=== PATIENT | male | born 1985 | race Caucasian/White ===

== ENCOUNTER 2018-09-26 10:30 | Emergency (ER) | payer SELFPAY ==
[~2018-09-26] VITALS: Ht 188 cm; Wt 90.9 kg
[2018-09-26] MEDS ORDERED: KETOROLAC 30 MG/ML VIAL (J1885) IV ONE (10:45)
[2018-09-26] MEDS ORDERED: NS 1,000 ML IV ONE (10:45)
[2018-09-26] MEDS ORDERED: ONDANSETRON 4MG/2ML VIAL (J2405) IV ONE (10:45)
[2018-09-26 11:01] LABS: BASO % 0.5 % (0.0-1.0); EOS # 0.1 10^3/uL (0.0-0.50); EOS % 1.5 % (0.0-3.0); HEMATOCRIT 40.1 % (42.0-52.0); HEMOGLOBIN 13.9 g/dl (13.5-17.5); LYMPH # 2.3 10^3/uL (1.5-4.5); LYMPH % 25.8 % (24.0-44.0); MEAN CORPUSCULAR HEMOGLOBIN 31.9 pg (27.0-33.0); MEAN CORPUSCULAR HGB CONC 34.7 g/dl (32.0-36.5); MONO # 0.8 10^3/uL (0.0-0.8); MONO % 8.6 % (0.0-5.0); NEUTROPHILS # 5.6 10^3/uL (1.8-7.7); NEUTROPHILS % 63.3 % (36.0-66.0); PLATELET COUNT, AUTOMATED 240 10^3/uL (150-450); RED BLOOD COUNT 4.36 10^6/uL (4.30-6.10); WHITE BLOOD COUNT 8.8 10^3/uL (4.0-10.0)
--- NOTE | 2018-09-26 11:27 | REP ---
Clinical: Right flank pain. Technique: Axial noncontrast images from the lung bases to the pubic symphysis with coronal and sagittal re-formations. Findings: Right kidney appears malrotated and demonstrates mild hydroureteronephrosis secondary to a 2 mm obstructing calculus at the ureterovesicle junction (image [id number]). Remainder of the urinary tract system is unremarkable and no further nephroureterolithiasis is noted. Liver, spleen, pancreas, gallbladder, and bilateral adrenal glands are normal. Enteric system is without obstruction or acute inflammatory process. Pelvis demonstrates collapsed bladder and age appropriate prostate/seminal vesicles. No ascites. No free air. No adenopathy. Abdominal aorta without aneurysm. Musculoskeletal structures without focal osseous abnormality. Lung bases clear. 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 Electronically Signed by Emmanuel Blackmon MD 09/26/2018 11:18 A
[2018-09-26] MEDS ORDERED: TAMSULOSIN 0.4 MG CAP PO ONE (11:30)
[2018-09-26 11:35] LABS: ALBUMIN 3.8 GM/DL (3.2-5.2); ALT/SGPT 32 U/L (12-78); BILIRUBIN,DIRECT < 0.1 MG/DL (0.0-0.2); BILIRUBIN,TOTAL 0.4 MG/DL (0.2-1.0); LIPASE 72 U/L (73-393); TOTAL PROTEIN 7.3 GM/DL (6.4-8.2)
[2018-09-26] MEDS ORDERED: PERCOCET 5MG/325MG TAB PO ONE (11:45)
[2018-09-26] MEDS ORDERED: FLOM0.4C39 PO (11:47)
[2018-09-26] MEDS ORDERED: KETO10TAB PO (11:47)
[2018-09-26] MEDS ORDERED: PERC5TAB12 PO (11:48)
[2018-09-26 12:05] LABS: BLOOD UREA NITROGEN 11 MG/DL (7-18); CALCIUM LEVEL 8.6 MG/DL (8.5-10.1); CARBON DIOXIDE LEVEL 23 MEQ/L (21-32); CHLORIDE LEVEL 106 MEQ/L (98-107); CREATININE FOR GFR 0.94 MG/DL (0.70-1.30); GLOMERULAR FILTRATION RATE > 60.0 (>60); GLUCOSE, FASTING 136 MG/DL (70-100); POTASSIUM SERUM 3.2 MEQ/L (3.5-5.1); SODIUM LEVEL 140 MEQ/L (136-145)
[2018-09-26] MEDS ORDERED: POTASSIUM CHLORIDE 10 MEQ SR TABLET PO ONE (12:15)
[2018-09-26 12:26] VITALS: BP 124/61
== END 2018-09-26 12:27 | disposition home or self-care (01) ==
LOC: M ED 10:30
DX: N20.1 Calculus of ureter (principal)
CPT/HCPCS: 74176; 80048; 80076; 81001; 83690; 85025; 96361; 96374; 96375; 99284; J1885; J2405

== ENCOUNTER 2019-11-12 13:47 | Emergency (ER) | payer OTHER ==
[~2019-11-12 13:47] MED LIST: FLOM0.4C39 PO; KETO10TAB PO; PERC5TAB12 PO
[2019-11-12] MEDS ORDERED: BOOSTRIX/ADACEL VACCINE (DIPHTH/PERTUSS/ACELL/TETANUS) 0.5ML SYR ONE (14:30)
[2019-11-12] MEDS ORDERED: BOOSTRIX/ADACEL VACCINE (DIPHTH/PERTUSS/ACELL/TETANUS) 0.5ML SYR As Ordered ONE (14:33)
[2019-12-26 12:26] LABS: APPEARANCE, URINE MANUAL CLEAR (CLEAR); BILIRUBIN, URINE MANUAL NEGATIVE (NEGATIVE); BLOOD URINE MANUAL NEGATIVE (NEGATIVE); COLOR, URINE MANUAL YELLOW (YELLOW); GLUCOSE, URINE (UA) MANUAL NEGATIVE (NEGATIVE); KETONE, URINE MANUAL NEGATIVE (NEGATIVE); LEUKOCYTE ESTERASE, URINE MAN NEGATIVE (NEGATIVE); NITRITE, URINE MANUAL NEGATIVE (NEGATIVE); PH,URINE MAN 5.5 UNITS (5.0 - 7.0); PROTEIN, URINE MANUAL NEGATIVE (NEGATIVE); UROBILINOGEN, URINE MANUAL NORMAL (NORMAL)
== END 2019-11-12 16:28 | disposition home or self-care (01) ==
LOC: M ED 13:47
DX: T14.8XXA Other injury of unspecified body region, initial encounter (principal); W11.XXXA Fall on and from ladder, initial encounter; Y92.89 Other specified places as the place of occurrence of the external cause; Y93.89 Activity, other specified; Y99.0 Civilian activity done for income or pay; Z91.013 Allergy to seafood

== ENCOUNTER 2021-07-18 17:08 | Emergency (ER) | payer OTHER ==
[~2021-07-18] VITALS: Ht 188 cm; Wt 95.9 kg
[2021-07-18 17:09] VITALS: BP 142/76
== END 2021-07-18 18:33 | disposition left against medical advice (07) ==
LOC: M ED 17:08
DX: Z53.21 Procedure and treatment not carried out due to patient leaving prior to being seen by health care provider (principal)

== ENCOUNTER 2021-07-20 23:33 | Emergency (ER) | payer OTHER ==
[~2021-07-20] VITALS: Ht 188 cm; Wt 100.5 kg
[2021-07-21 00:25] LABS: BASO % 0.5 % (0.0-1.0); EOS # 0.4 10^3/uL (0.0-0.5); EOS % 4.7 % (0.0-3.0); HEMATOCRIT 39.8 % (42.0-52.0); HEMOGLOBIN 13.8 g/dl (13.5-17.5); LYMPH # 2.3 10^3/uL (1.5-5.0); MEAN CORPUSCULAR HEMOGLOBIN 31.7 pg (27.0-33.0); MEAN CORPUSCULAR HGB CONC 34.7 g/dl (32.0-36.5); MEAN CORPUSCULAR VOLUME 91.3 fl (80.0-96.0); MONO # 0.8 10^3/uL (0.0-0.8); MONO % 9.7 % (2.0-8.0); NEUTROPHILS # 4.4 10^3/uL (1.5-8.5); PLATELET COUNT, AUTOMATED 235 10^3/uL (150-450); RED BLOOD COUNT 4.36 10^6/uL (4.30-6.10); WHITE BLOOD COUNT 7.8 10^3/uL (4.0-10.0)
[2021-07-21 00:55] LABS: BLOOD UREA NITROGEN 14 MG/DL (7-18); CALCIUM LEVEL 9.5 MG/DL (8.5-10.1); CARBON DIOXIDE LEVEL 29 MEQ/L (21-32); CHLORIDE LEVEL 106 MEQ/L (98-107); CREATININE FOR GFR 0.89 MG/DL (0.70-1.30); GLOMERULAR FILTRATION RATE > 60.0 (>60); GLUCOSE, FASTING 95 MG/DL (70-100); MAGNESIUM LEVEL 2.1 MG/DL (1.8-2.4); NT-PRO BNP 17 PG/ML (<125); SODIUM LEVEL 139 MEQ/L (136-145)
[2021-07-21 00:56] LABS: CK-MB VALUE MASS 1.1 NG/ML (<3.6); MB/CK RELATIVE INDEX 0.8 (< OR =4)
[2021-07-21] MEDS ORDERED: ISOVUE-370 76% 100ML VIAL As Ordered ONE (01:42)
[2021-07-21 02:46] VITALS: BP 118/58
== END 2021-07-21 02:58 | disposition home or self-care (01) ==
LOC: M ED 23:33
DX: R07.89 Other chest pain (principal); F17.200 Nicotine dependence, unspecified, uncomplicated; Z82.49 Family history of ischemic heart disease and other diseases of the circulatory system; R91.1 Solitary pulmonary nodule
CPT/HCPCS: 71045; 71275; 80048; 82550; 82553; 83735; 83880; 85025; 85379; 93005; 99284; Q9967

== ENCOUNTER → 2021-08-24 | Outpatient (CLI) | payer OTHER | LOC: M RAD 14:28 | PROVIDERS: ATTEND Physician Assistant | DX: M79.652 Pain in left thigh (principal) ==

== ENCOUNTER → 2022-01-08 | Outpatient (CLI) | payer OTHER ==
[~2022-01-08] MED LIST changes: +ISOVUE-370 76% 100ML VIAL As Ordered ONE
== END ==
LOC: M RAD 13:56
PROVIDERS: ATTEND Nurse Practitioner Family
DX: R07.9 Chest pain, unspecified (principal); R91.8 Other nonspecific abnormal finding of lung field
CPT/HCPCS: 71260; Q9967

== ENCOUNTER → 2022-01-10 | Outpatient (CLI) | payer OTHER ==
[~2022-01-10] MED LIST changes: -ISOVUE-370 76% 100ML VIAL As Ordered ONE
== END ==
LOC: M PLARAD 10:05
PROVIDERS: ATTEND Nurse Practitioner Family
DX: R55 Syncope and collapse (principal); J32.4 Chronic pansinusitis; J33.8 Other polyp of sinus

== ENCOUNTER → 2022-01-16 | Outpatient (CLI) | payer OTHER | LOC: M RAD 13:37 | PROVIDERS: ATTEND Nurse Practitioner Family | DX: R55 Syncope and collapse (principal) ==

== ENCOUNTER → 2022-08-18 | Outpatient (CLI) | payer OTHER | LOC: M PLAIMG 12:26 | PROVIDERS: ATTEND Nurse Practitioner Family | DX: D49.1 Neoplasm of unspecified behavior of respiratory system (principal); R91.1 Solitary pulmonary nodule ==

== ENCOUNTER 2022-10-25 11:28 | Emergency (ER) | payer OTHER ==
[~2022-10-25] VITALS: Ht 185.4 cm; Wt 98.4 kg
[2022-10-25 12:42] LABS: BASO % 0.7 % (0.0-1.0); EOS # 0.2 10^3/uL (0.0-0.5); EOS % 3.5 % (0.0-3.0); HEMATOCRIT 41.4 % (42.0-52.0); HEMOGLOBIN 14.2 g/dl (13.5-17.5); LYMPH # 1.2 10^3/uL (1.5-5.0); LYMPH % 21.4 % (24.0-44.0); MEAN CORPUSCULAR HEMOGLOBIN 31.3 pg (27.0-33.0); MEAN CORPUSCULAR HGB CONC 34.3 g/dl (32.0-36.5); MEAN CORPUSCULAR VOLUME 91.4 fl (80.0-96.0); MONO # 0.5 10^3/uL (0.0-0.8); MONO % 9.4 % (2.0-8.0); NEUTROPHILS # 3.7 10^3/uL (1.5-8.5); NEUTROPHILS % 64.8 % (36.0-66.0); PLATELET COUNT, AUTOMATED 284 10^3/uL (150-450); RED BLOOD COUNT 4.53 10^6/uL (4.30-6.10); WHITE BLOOD COUNT 5.8 10^3/uL (4.0-10.0)
[2022-10-25 12:57] LABS: INR 0.94; PROTHROMBIN TIME 12.8 SECONDS (12.5-14.5)
[2022-10-25 12:58] LABS: PARTIAL THROMBOPLASTIN TIME 27.2 SECONDS (24.8-34.2)
[2022-10-25 13:10] LABS: LIPASE 25 U/L (12-53)
[2022-10-25] MEDS ORDERED: KETOROLAC 30 MG/ML 1ML VIAL IV ONE (13:10)
[2022-10-25] MEDS ORDERED: NS 1,000 ML IV ONE (13:10)
[2022-10-25 13:12] LABS: ALBUMIN 4.2 G/DL (3.2-5.2); ALKALINE PHOSPHATASE 73 U/L (46-116); ALT/SGPT 17 U/L (7.0-40); AST/SGOT < 8 U/L (<34); BILIRUBIN,DIRECT 0.1 MG/DL (<0.4); BILIRUBIN,TOTAL 0.5 MG/DL (0.3-1.2); BLOOD UREA NITROGEN 14 MG/DL (9-23); CALCIUM LEVEL 9.2 MG/DL (8.5-10.1); CARBON DIOXIDE LEVEL 29 MMOL/L (20-31); CHLORIDE LEVEL 103 MMOL/L (98-107); CK-MB VALUE MASS < 1.0 NG/ML (<3.6); CREATININE FOR GFR 0.83 MG/DL (0.70-1.30); GLOMERULAR FILTRATION RATE > 60.0 (>60); GLUCOSE, FASTING 94 MG/DL (60-100); POTASSIUM SERUM 4.1 MMOL/L (3.5-5.1); SODIUM LEVEL 139 MMOL/L (136-145); TOTAL PROTEIN 7.1 G/DL (5.7-8.2)
[2022-10-25 13:16] LABS: FREE T4 1.24 NG/DL (0.89-1.76); THYROID STIMULATING HORMONE 1.294 uIU/ML (0.55-4.78)
[2022-10-25 13:17] LABS: CPK CREATINE PHOSPHOKINASE 128 U/L (46-171); MB/CK RELATIVE INDEX 0.78 (< OR =4)
[2022-10-25 13:35] LABS: MAGNESIUM LEVEL 1.8 MG/DL (1.8-2.4)
[2022-10-25 14:19] LABS: CK-MB VALUE MASS < 1.0 NG/ML (<3.6)
[2022-10-25 14:20] LABS: CPK CREATINE PHOSPHOKINASE 132 U/L (46-171); MB/CK RELATIVE INDEX 0.75 (< OR =4)
[2022-10-25] MEDS ORDERED: FLON1SPR NARES (15:06)
[2022-10-25 15:30] VITALS: BP 106/66; TEMP 98; O2SAT 99
== END 2022-10-25 15:35 | disposition home or self-care (01) ==
LOC: M ED 11:28
DX: R07.9 Chest pain, unspecified (principal); H65.01 Acute serous otitis media, right ear; R51.9 Headache, unspecified; F17.290 Nicotine dependence, other tobacco product, uncomplicated; Z91.013 Allergy to seafood
CPT/HCPCS: 70450; 71045; 80048; 80076; 82550; 82553; 83690; 83735; 83880; 84439; 84443; 85025; 85610; 85730; 86618; 93005; 93041; 94760; 96361; 96374; 99285; J1885

== ENCOUNTER → 2022-11-26 | Outpatient (CLI) | payer OTHER ==
[~2022-11-26] MED LIST changes: +FLON1SPR NARES
== END ==
LOC: M RAD 16:05
PROVIDERS: ATTEND Nurse Practitioner Family
DX: L04.0 Acute lymphadenitis of face, head and neck (principal)

== ENCOUNTER → 2023-06-11 | Outpatient (CLI) | payer OTHER | LOC: M RAD 11:24 | PROVIDERS: ATTEND Nurse Practitioner Family | DX: D48.5 Neoplasm of uncertain behavior of skin (principal); R59.0 Localized enlarged lymph nodes ==

== ENCOUNTER → 2023-09-28 | Outpatient (CLI) | payer OTHER | LOC: M RAD 12:40 | PROVIDERS: ATTEND Nurse Practitioner Family | DX: D49.1 Neoplasm of unspecified behavior of respiratory system (principal) ==

== ENCOUNTER → 2024-11-18 | Outpatient (CLI) | payer OTHER ==
[~2024-11-18] MED LIST changes: -FLOM0.4C39 PO; +TAMS-18 PO
== END ==
LOC: M RAD 14:35
PROVIDERS: ATTEND Nurse Practitioner Family
DX: D49.1 Neoplasm of unspecified behavior of respiratory system (principal)